=== PATIENT | male | born 1970 | race Hispanic/Latino ===

== ENCOUNTER 2016-06-19 08:06 | Emergency (ER) | payer OTHER, MEDICARE ==
[2016-06-19] MEDS ORDERED: VALIUM PO ONE (10:12)
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
[2016-06-19] MEDS ORDERED: NORCO 5/325 PO ONE (10:58)
--- NOTE | 2016-06-19 11:27 | XRay Report ---
LUMBOSACRAL SPINE, 3 VIEWS: HISTORY: Midline back pain. FINDINGS: There is normal bone mineralization. Normal height and alignment of the lumbar vertebral bodies. There is mild anterior spurring at T12-L1 and L1-2. No evidence for fracture, bone lesion or subluxation. IMPRESSION: No acute process is noted. Early spondylosis.
--- NOTE | 2016-06-19 12:26 | Cat Scan Report ---
CT SCAN OF THE CERVICAL SPINE: HISTORY: Midline neck tenderness, pain. TECHNIQUE: Contiguous 1.25 mm axial images of the cervical spine were obtained. Sagittal and coronal reformatted images. FINDINGS: There is normal alignment of the cervical spine. The body, pedicles and posterior ligaments appear normal. No evidence of fracture or subluxation is seen. There is mild disc space narrowing and posterior spurring at C5-6. There is moderate to severe disc space narrowing and circumferential spurring at C6-7. The remaining levels are within normal limits. The prevertebral soft tissues appear normal. IMPRESSION: Mild cervical spondylosis as described. If radicular symptoms are present, MRI cervical spine without contrast is recommended. No evidence for acute injury.
[2016-06-19 13:06] VITALS: BP 141/90
== END 2016-06-19 13:04 | disposition home or self-care (01) ==
LOC: ED 08:06
DX: S13.4XXA Sprain of ligaments of cervical spine, initial encounter (principal); S39.012A Strain of muscle, fascia and tendon of lower back, initial encounter; I10 Essential (primary) hypertension; I25.2 Old myocardial infarction; E11.9 Type 2 diabetes mellitus without complications; M19.90 Unspecified osteoarthritis, unspecified site; J45.909 Unspecified asthma, uncomplicated; I82.409 Acute embolism and thrombosis of unspecified deep veins of unspecified lower extremity; F17.200 Nicotine dependence, unspecified, uncomplicated; Z79.4 Long term (current) use of insulin; V49.40XA Driver injured in collision with unspecified motor vehicles in traffic accident, initial encounter; Y93.9 Activity, unspecified; Y99.9 Unspecified external cause status; Y92.410 Unspecified street and highway as the place of occurrence of the external cause
CPT/HCPCS: 72100; 72125

== ENCOUNTER 2019-03-17 22:27 | Emergency (ER) | payer SELFPAY ==
--- NOTE | 2019-03-17 22:42 | Emergency Department Report ---
Blank Doc - Documentation Documentation: 48-year-old male that presents with right knee, tib-fib and ankle after metal fell on leg. This initial assessment/diagnostic orders/clinical plan/treatment(s) is/are subject to change based on patient's health status, clinical progression and re- assessment by fellow clinical providers in the ED. Further treatment and workup at subsequent clinical providers discretion. Patient/guardians urged not to elope from the ED as their condition may be serious if not clinically assessed and managed. Initial orders include: 1- Patient sent to [facility] for further evaluation and treatment 2- xrays
--- NOTE | 2019-03-18 00:12 | XRay Report ---
RIGHT KNEE 3 VIEW(S) INDICATION / CLINICAL INFORMATION: pain COMPARISON: None available. FINDINGS: BONES / JOINT(S): No acute fracture or subluxation. No significant arthritis. SOFT TISSUES: No significant abnormality. ADDITIONAL FINDINGS: None. ----- RIGHT TIBIA-FIBULA 2 VIEW(S) INDICATION / CLINICAL INFORMATION: pain COMPARISON: None available. FINDINGS: BONES / JOINT(S): No acute fracture or subluxation. No significant arthritis. SOFT TISSUES: No significant abnormality. ADDITIONAL FINDINGS: None. ----- RIGHT ANKLE 2 VIEW(S) INDICATION / CLINICAL INFORMATION: pain COMPARISON: None available. FINDINGS: BONES / JOINT(S): No acute fracture or subluxation. Old, nonunited fracture at the base of the 5th me tatarsal. SOFT TISSUES: Mild anterior ankle soft tissue swelling. ADDITIONAL FINDINGS: None. Signer Name: Linda Forbes MD Signed: 03/18/2019 12:08 AM Workstation Name: [id number]
--- NOTE | 2019-03-18 00:40 | Emergency Department Report ---
HPI - General Chief Complaint: Extremity Injury, Lower Time Seen by Provider: 03/17/19 22:41 - HPI HPI: 40-year-old male presents to the emergency department with complaint of right leg pain from the knee down to the ankle that has been going on since he accidentally had a 215 pound roll of plastic fall on his leg while at work just prior to presentation. He feels like something popped in his knee. The pain worsens with movement and with bearing of weight. He has not taken anything for her symptoms prior to presentation. The patient does admit to a history of narcotic pill abuse. ED Past Medical Hx - Past Medical History Hx Hypertension: Yes Hx Heart Attack/AMI: Yes Hx Diabetes: Yes Hx Deep Vein Thrombosis: Yes Hx Arthritis: Yes Hx Psychiatric Treatment: Yes (PTSD) Hx Asthma: Yes - Surgical History Hx Coronary Stent: Yes (6) Hx Appendectomy: Yes Additional Surgical History: left knee surgery. left eye surgery. LEFT EAR SURGERY. LEFT HAND SURGERY. IVC filter - Social History Smoking Status: Current Every Day Smoker Substance Use Type: None - Medications Home Medications: Home Medications Medication Instructions Recorded Confirmed Last Taken Type Irbesartan [Avapro] 75 mg PO BID 10/04/15 03/05/16 Unknown History LORazepam [Ativan] 1 mg PO BID 10/04/15 03/05/16 Unknown History Sertraline [Zoloft] 100 mg PO QDAY 10/04/15 03/05/16 Unknown History Carvedilol Phosphate [Coreg CR] 80 mg PO DAILY #30 cpmp.24hr 10/06/15 03/05/16 Unknown Rx Famotidine [Pepcid] 20 mg PO BID #60 tablet 10/06/15 03/05/16 Unknown Rx HYDROcodone/APAP 7.5-325 [[place] 1 each PO Q12HR PRN #10 tablet 10/06/15 03/05/16 Unknown Rx 7.5-325 mg TAB] Insulin NPH/Regular [Novolin 70/30] 6 unit SQ BIDDIAB #1 vial 10/06/15 03/05/16 Unknown Rx HYDROcodone/APAP 5-325 [[place] 1 each PO Q6HR PRN #10 tablet 03/05/16 Unknown Rx 5/325] Cyclobenzaprine [Flexeril] 10 mg PO TID PRN #14 tablet 06/19/16 Unknown Rx Naproxen [Naprosyn] 500 mg PO BID #30 tablet 06/19/16 Unknown Rx Ibuprofen [Motrin 800 MG tab] 800 mg PO Q8HR PRN #20 tablet 03/18/19 Unknown Rx ED Review of Systems ROS: Stated complaint: R LEG INJURY/PAIN Other details as noted in HPI Comment: All other systems reviewed and negative Constitutional: denies: chills, fever Musculoskeletal: joint swelling, arthralgia, myalgia Neurological: denies: numbness, paresthesias Physical Exam - Physical Exam Vital Signs: Vital Signs 03/17/19 22:33 Temperature 97.8 F Pulse Rate 89 Respiratory 20 Rate Blood Pressure 163/105 O2 Sat by Pulse 94 Oximetry Physical Exam: GENERAL: The patient is well-developed well-nourished. HENT: Normocephalic. Atraumatic. Patient has moist mucous membranes. EYES: Extraocular motions are intact. NECK: Supple. Trachea is midline. ABDOMEN: There is no abdominal distention. SKIN: Skin is warm and dry. NEURO: The patient is awake, alert, and oriented. The patient is cooperative. The patient has no focal neurologic deficits. Normal speech. MUSCULOSKELETAL: There is tenderness to palpation to the right knee and proximal to middle tib-fib but no obvious deformity. Negative anterior and posterior drawer test and no laxity with valgus or varus stress to the affected right knee. +2 over 4 dorsalis pedis pulse to the affected right leg. ED Course Vital Signs 03/17/19 22:33 Temperature 97.8 F Pulse Rate 89 Respiratory 20 Rate Blood Pressure 163/105 O2 Sat by Pulse 94 Oximetry ED Medical Decision Making - Radiology Data Radiology results: image reviewed interpreted by me: X-ray of the right knee, tib-fib and ankle do not show any fractures, disl ocations, or any acute process. - Medical Decision Making The patient accidentally had a 215 pound roll of plastic fall onto his right leg. On examination there is no obvious deformity and he is neurovascularly intact. X-rays were done of the knee, tib-fib, ankle that did not show any fractures, dislocations or any acute process. Patient was given anti-inflammatories, a knee immobilizer and some crutches. He will be given a referral for orthopedics. He will return to the ER with any worsening of his symptoms or any acute distress. - Differential Diagnosis fracture, dislocation, contusion, meniscus tear Critical Care Time: No Critical care attestation.: If time is entered above; I have spent that time in minutes in the direct care of this critically ill patient, excluding procedure time. ED Disposition Clinical Impression: Left leg pain Left knee pain Qualifiers: Chronicity: acute Qualified Code(s): M25.562 - Pain in left knee Disposition: - TO HOME OR SELFCARE Is pt being admited?: No Condition: Stable Instructions: Knee Pain (ED), Arthralgia (ED) Prescriptions: Ibuprofen [Motrin 800 MG tab] 800 mg PO Q8HR PRN #20 tablet PRN Reason: Pain , Severe (7-10) Referrals: SREEKANTH GARNER MD [Staff Physician] - 2-3 Days [facility] [Provider Group] - 2-3 Days Forms: Work/School Release Form(ED) Time of Disposition: 00:39
[2019-03-18 01:04] VITALS: BP 119/83
== END 2019-03-18 01:03 | disposition home or self-care (01) ==
LOC: ED 22:27
DX: M25.562 Pain in left knee (principal); I10 Essential (primary) hypertension; I25.2 Old myocardial infarction; E11.9 Type 2 diabetes mellitus without complications; F43.10 Post-traumatic stress disorder, unspecified; J45.909 Unspecified asthma, uncomplicated; F17.200 Nicotine dependence, unspecified, uncomplicated; Z86.718 Personal history of other venous thrombosis and embolism; Z95.5 Presence of coronary angioplasty implant and graft; Z98.890 Other specified postprocedural states; Z79.899 Other long term (current) drug therapy; Z79.4 Long term (current) use of insulin; Z91.041 Radiographic dye allergy status; Z88.6 Allergy status to analgesic agent; Z91.040 Latex allergy status; Z88.8 Allergy status to other drugs, medicaments and biological substances; W22.8XXA Striking against or struck by other objects, initial encounter; Y93.89 Activity, other specified; Y92.89 Other specified places as the place of occurrence of the external cause; Y99.8 Other external cause status